=== PATIENT | female | born 1975 | race Caucasian/White ===

== ENCOUNTER 2020-02-11 14:39 | Emergency (ER) | payer OTHER ==
[~2020-02-11] VITALS: Ht 162.6 cm; Wt 80.7 kg
[2020-02-11] MEDS ORDERED: KLOR-CON 10 ER10 MEQ PO (14:49)
[2020-02-11] MEDS ORDERED: PROZAC20 MG PO (14:49)
[2020-02-11] MEDS ORDERED: HYDROCHLOROTHIA25 M2 PO (14:49)
[2020-02-11] MEDS ORDERED: COZAAR 25 MG TA25 M2 PO (14:49)
[2020-02-11] MEDS ORDERED: METFORMIN HCL500 M3 PO (14:50)
[2020-02-11 15:13] LABS: ABSOLUTE BASOPHILS 0.1 thou/uL (0.0-0.2); ABSOLUTE EOSINOPHILS 0.3 thou/uL (0.0-0.7); ABSOLUTE LYMPHOCYTES 3.2 thou/uL (0.8-5.3); ABSOLUTE MONOCYTES 0.8 thou/uL (0.0-1.2); ABSOLUTE NEUTROPHILS 4.8 thou/uL (1.6-8.1); BASOPHILS 0.7 %; EOSINOPHILS 3.1 %; HEMATOCRIT 43.5 % (37.0-47.0); LYMPHOCYTES 35.1 %; MCH 30.4 pg (26.0-34.0); MCHC 34.5 g/dL (28.0-37.0); MCV 88.1 fL (80.0-100.0); MONOCYTES 8.8 %; MPV 8.5 fl. (7.2-11.1); NUCLEATED RBCS 0 /100WBC; PLATELET COUNT* 326 thou/uL (150-400); POLYS 52.3 %; RBC 4.94 mil/uL (4.20-5.00); RDW-CV 14.4 % (10.5-14.5); WBC 9.2 thou/uL (4.0-11.0)
[2020-02-11 15:29] LABS: APTT 25.4 Seconds (25.0-31.3); PROTIME 10.2 Seconds (9.20-11.50)
[2020-02-11 15:35] LABS: ANION GAP 9 mmol/L (7-16); BUN 14 mg/dL (7-18); CALCIUM 8.5 mg/dL (8.5-10.1); CHLORIDE 102 mmol/L (98-107); CO2 29 mmol/L (21-32); CREATININE 0.8 mg/dL (0.6-1.3); GLUCOSE 92 mg/dL (70-99); POTASSIUM 3.8 mmol/L (3.5-5.1); SODIUM 140 mmol/L (136-145)
[2020-02-11 15:49] LABS: ALBUMIN 4.3 g/dL (3.4-5.0); ALKALINE PHOSPHATASE 79 U/L (46-116); CK-MB MASS < 0.5 ng/mL (<0.5-3.6); LIPASE 145 U/L (73-393); MAGNESIUM 2.3 mg/dL (1.8-2.4); NT-PRO BRAIN NAT PEPTIDE 129 pg/mL (<300); SGOT 17 U/L (15-37); SGPT 24 U/L (30-65); TOTAL BILIRUBIN 0.3 mg/dL (<0.1-1.0); TOTAL PROTEIN 8.1 g/dL (6.4-8.2)
[2020-02-11] MEDS ORDERED: NAPROSYN500 MG PO (16:09)
[2020-02-11 16:29] VITALS: BP 139/86
--- NOTE | 2020-02-13 14:40 | EKG ---
[place] [address] ELECTROCARDIOGRAM REPORT Name: AGUILRAYANELIS Room: [facility]#: [id number] Admission: 02/11/20 Attend Phys: Discharge: 02/11/20 Date of : 79 Date of Service: 02/11/20 1441 Report #: [id number] THIS REPORT FOR: //name// [facility] ED Test Date: 2020-02-11 Test Time: 14:41:46 Pat Name: YANELIS AGUILAR Department: Room: Gender: F Coffee Attendant: RAY : 1975 Requested By: Ja Slater Order Number: [id number] MD: Olegario Dean Measurements Intervals Register Rate: 74 P: 16 AR: 108 QRS: 17 QRSD: 89 T: 36 QT: 367 QTc: 408 Interpretive Statements Sinus rhythm Short AR interval Abnormal R-wave progression, early transition No previous ECG available for comparison Electronically Signed On 02-13-2020 14:39:08 CDT by Olegario Dean [email or web address] <ELECTRONICALLY SIGNED> By: Olegario Dean MD, [facility] 02/13/20 1439 1441 1441 Olegario Dean MD, [facility] /EPI
== END 2020-02-11 16:35 | disposition home or self-care (01) ==
LOC: M.ERS 14:39
PROVIDERS: Emergency Medicine
DX: R07.89 Other chest pain (principal); I10 Essential (primary) hypertension; Z90.710 Acquired absence of both cervix and uterus; Z90.49 Acquired absence of other specified parts of digestive tract; Z91.040 Latex allergy status; Z90.89 Acquired absence of other organs